=== PATIENT | male | born 1945 | race Caucasian/White ===

== ENCOUNTER 2017-07-15 06:13 | Day surgery (SDC) | payer BC, MEDICARE ==
[2017-07-11 12:55] VITALS: BMI 29.8
[2017-07-15] MEDS ORDERED: Lidocaine 2% Inj (20ml) ONE (06:43)
[2017-07-15] MEDS ORDERED: Midazolam 2 MG/2 ML VIAL ONE ×3 (06:44→08:26)
[2017-07-15] MEDS ORDERED: Phenylephrine 10 mg/ml Inj ONE (06:44)
[2017-07-15] MEDS ORDERED: Nitroglycerin 50mg in D5W 0 MG/0 ML BOTTLE IV ONE (06:45)
[2017-07-15] MEDS ORDERED: Iodixanol 320 MG/ML 200 ML BOTTLE IV ONE (06:45)
[2017-07-15] MEDS ORDERED: Iohexol 350mgl/ml 50 ML ONE (06:45)
[2017-07-15] MEDS ORDERED: Iodixanol 320 MG/ML 100 ML BOTTLE IV ONE (06:45)
[2017-07-15 07:08] LABS: BASO # 0.04 K/mm3 (0.0-2.0); BASO % 0.7 % (0.0-3.0); EOS # 0.2 (0.0-0.7); EOS % 4.1 % (1.5-5.0); GRAN # 2.71 (1.4-6.5); GRAN % 46.7 % (50.0-68.0); LYMPH # 2.3 (1.2-3.4); LYMPH % 39.9 % (22.0-35.0); MEAN CELL VOLUME 92.9 fl (80.0-105.0); MEAN CORPUSCULAR HEMOGLOBIN 31.4 pg (25.0-35.0); MEAN CORPUSCULAR HGB CONC 33.9 g/dl (31.0-37.0); MEAN PLATELET VOLUME 10.1 fl (7.0-11.0); MONO # 0.5 (0.1-0.6); MONO % 8.6 % (1.0-6.0); RBC 4.77 10^6/uL (3.5-6.1); RED CELL DISTRIBUTION WIDTH 14.1 % (11.5-14.5); WHITE BLOOD COUNT 5.8 10^3/ul (4.5-11.0)
[2017-07-15 07:14] LABS: BLOOD UREA NITROGEN 23 mg/dL (7-21); GFR AFRICAN-AMERICAN > 60; GFR NON-AFRICAN AMERICAN > 60; HDL CHOLESTEROL 50 mg/dL (29-60)
[2017-07-15 07:18] VITALS: RESP 18
[2017-07-15 07:24] LABS: LDL CHOLESTEROL 108 mg/dL (0-129)
[2017-07-15 07:27] LABS: PARTIAL THROMBOPLASTIN TIME 30.7 Seconds (25.1-36.5); PROTHROMBIN TIME 11.5 SECONDS (9.4-12.5)
[2017-07-15] MEDS ORDERED: Sodium Chloride 0.9% 1,000 ML IV SCH (09:00)
[2017-07-15 09:16] VITALS: TEMP 97.3
[2017-07-15 12:39] VITALS: PULSE 52
--- NOTE | 2017-07-15 13:21 | CARDCATH ---
PROCEDURE DATE: 07/15/2017 HISTORY: The patient is a 72-year-old male, who presents with an abnormal stress test. The patient's past medical history includes a history of smoking. He has a history of documented hep C and is status post liver transplantation. He does experience exertional shortness of breath and chest pain. Because of this, cardiac catheterization was recommended. PROCEDURE: Left heart catheterization with coronary arteriography and left ventriculogram. The right femoral artery was cannulated with a 6-Bengali sheath. There were no complications. I performed moderate sedation, which included the presence of an independent trained observer that assisted in monitoring the patient's level of consciousness and physiologic status. After administration of Versed and fentanyl, my intra service time was 15 minutes. The findings on catheterization revealed a left ventricle that contracted normally. Estimated ejection fraction of 60%. The patient had a left dominant circulation. The RCA was small vessel with intimal irregularities without significant stenoses. The left main artery was unremarkable. The LAD and diagonal vessels revealed intimal irregularities without significant stenoses. The circumflex artery and obtuse marginal branches revealed intimal irregularities without significant stenoses. The patient tolerated the procedure well. Angio-Seal was used to close the femoral artery site. In summary, the procedure revealed mild intimal irregularities throughout its coronary tree with no critical lesions. LV function is normal. Given these findings, the patient's treatment should be a cardiac risk reduction program. No further cardiac workup is necessary at this time. Steffen Zelaya MD
[2017-07-15 13:33] VITALS: BP 136/65; O2SAT 96
--- NOTE | 2017-07-15 19:34 | CARD ---
APPROVED REPORT EKG Measurement Heart [id number] <Conclusion> Normal sinus rhythm Left bundle branch block Abnormal ECG
== END 2017-07-15 14:45 | disposition home or self-care (01) ==
LOC: SDSVAS 06:13
PROVIDERS: ATTEND Internal Medicine Cardiovascular Disease
DX: I20.0 Unstable angina (principal); I10 Essential (primary) hypertension; B19.20 Unspecified viral hepatitis C without hepatic coma; Z94.4 Liver transplant status; Z87.891 Personal history of nicotine dependence
CPT/HCPCS: 36415; 80048; 80061; 85025; 85610; 85730; 86850; 86900; 93005; 93458; 99152; 99153; C1760; C1769; C2629; J1644; J2250; J3010; J7030; J7040; Q9966